=== PATIENT | female | born 1960 | race Hispanic/Latino ===

== ENCOUNTER 2022-06-10 10:54 | Emergency (ER) | payer BC ==
[2022-06-10 13:03] LABS: Basophils % (Auto) 0.8 % (0.0-1.8); Eosinophils # (Auto) 0.3 K/mm3 (0.0-0.4); Eosinophils % (Auto) 4.1 % (0.0-4.3); Hematocrit 37.9 % (30.3-42.9); Hemoglobin 12.6 gm/dl (10.1-14.3); Lymphocytes # (Auto) 2.6 K/mm3 (1.2-5.4); Lymphocytes % (Auto) 41.2 % (13.4-35.0); Mean Corpuscular HGB Conc 33 % (30-34); Mean Corpuscular Volume 87 fl (79-97); Monocytes # (Auto) 0.4 K/mm3 (0.0-0.8); Monocytes % (Auto) 6.2 % (0.0-7.3); Platelet Count 239 K/mm3 (140-440); Red Blood Count 4.33 M/mm3 (3.65-5.03); Red Cell Distribution Width 14.3 % (13.2-15.2)
[2022-06-10 13:21] LABS: Alanine Aminotransferase 53 units/L (7-56); Albumin 3.6 g/dL (3.9-5); Blood Urea Nitrogen 11 mg/dL (7-17); Hemolysis Index 2
[2022-06-10 13:31] LABS: BUN/Creatinine Ratio 18
[2022-06-10] MEDS ORDERED: oxyCODONE /ACETAMINOPHEN 5-325MG TAB PO ONE (15:59)
--- NOTE | 2022-06-10 16:04 | Emergency Department Report ---
ED General Adult HPI - General Chief complaint: Urogenital-Female Stated complaint: PAIN IN VAGINAL AREA AND KIDNEY PASSING BLOOD Time Seen by Provider: 06/10/22 15:47 Source: patient Mode of arrival: Ambulatory Limitations: No Limitations - History of Present Illness Initial comments: 61-year-old female with past medical history of hypertension diabetes reports to the ER with complaints of vaginal bleeding and vaginal cramping for 2 to 3 weeks. Patient describes the vaginal bleeding as spotting as if she is having a menstrual period. Patient reports it has been several years since her last menstrual period. Patient denies any nausea vomiting or diarrhea. Patient denies any weakness, dizziness, headaches, fatigue. No other acute signs or sy mptoms reported at this time Severity scale (0 -10): 9 - Related Data Previous Rx's Medication Instructions Recorded Last Taken Type Lisinopril/Hydrochlorothiazide 1 tab PO QDAY #90 tablet 07/24/13 10/31/13 Rx [Zestoretic 20-12.5 mg] Aspirin [Aspirin BABY CHEW TAB] 81 mg PO QDAY #30 tab.chew 11/02/13 Unknown Rx Butalb/Acetamin/Caff 50-325-40 1 each PO Q4H PRN #30 tablet 11/02/13 Unknown Rx [Fioricet] Ciprofloxacin HCl/Dexameth 4 drop OT QID #1 drops.susp 10/01/14 Unknown Rx [Ciprodex Otic Suspension 0.3/0.1%] predniSONE [Deltasone] 20 mg PO TID #15 tab 10/01/14 Unknown Rx Acetaminophen/Codeine [Tylenol 1 tab PO Q6H PRN 2 Days #8 tab 06/10/22 Unknown Rx /Codeine # 3 tab] Ciprofloxacin HCl 250 mg PO Q12H 3 Days #6 tab 06/10/22 Unknown Rx Lisinopril/Hydrochlorothiazide 1 each PO QDAY 30 Days #30 tab 06/10/22 Unknown Rx [Zestoretic 20-12.5 mg] Allergies Allergy/AdvReac Type Severity Reaction Status Date / Time No Known Allergies Allergy Unverified 07/24/13 13:59 ED Review of Systems ROS: Stated complaint: PAIN IN VAGINAL AREA AND KIDNEY PASSING BLOOD Other details as noted in HPI Comment: All other systems reviewed and negative Gastrointestinal: abdominal pain (Suprapubic area). denies: nausea, vomiting Genitourinary: abnormal menses ED Past Medical Hx - Past Medical History Previous Medical History?: Yes Hx Hypertension: Yes Hx Diabetes: Yes Hx Headaches / Migraines: Yes (brain tumor) Additional medical history: brain tumor - Surgical History Past Surgical History?: Yes Hx Cholecystectomy: Yes - Social History Smoking Status: Never Smoker Substance Use Type: None - Medications Home Medications: Home Medications Medication Instructions Recorded Confirmed Last Taken Type Lisinopril/Hydrochlorothiazide 1 tab PO QDAY #90 tablet 07/24/13 11/01/13 10/31/13 Rx [Zestoretic 20-12.5 mg] Aspirin [Aspirin BABY CHEW TAB] 81 mg PO QDAY #30 tab.chew 11/02/13 Unknown Rx Butalb/Acetamin/Caff 50-325-40 1 each PO Q4H PRN #30 tablet 11/02/13 Unknown Rx [Fioricet] Ciprofloxacin HCl/Dexameth 4 drop OT QID #1 drops.susp 10/01/14 Unknown Rx [Ciprodex Otic Suspension 0.3/0.1%] predniSONE [Deltasone] 20 mg PO TID #15 tab 10/01/14 Unknown Rx Acetaminophen/Codeine [Tylenol 1 tab PO Q6H PRN 2 Days #8 tab 06/10/22 Unknown Rx /Codeine # 3 tab] Ciprofloxacin HCl 250 mg PO Q12H 3 Days #6 tab 06/10/22 Unknown Rx Lisinopril/Hydrochlorothiazide 1 each PO QDAY 30 Days #30 tab 06/10/22 Unknown Rx [Zestoretic 20-12.5 mg] ED Physical Exam - General Limitations: No Limitations General appearance: alert, in no apparent distress - Head Head exam: Present: atraumatic, normocephalic - Eye Eye exam: Present: normal appearance - ENT ENT exam: Present: mucous membranes moist - Neck Neck exam: Present: normal inspection - Respiratory Respiratory exam: Present: normal lung sounds bilaterally. Absent: respiratory distress - Cardiovascular Cardiovascular Exam: Present: regular rate, normal rhythm. Absent: systolic murmur, diastolic murmur, rubs, gallop - GI/Abdominal GI/Abdominal exam: Present: soft, tenderness (Suprapubic area and lower abdominal region no acute abdominal signs noted on physical exam.), normal bowel sounds. Absent: distended, guarding, rebound, rigid - Extremities Exam Extremities exam: Present: normal inspection - Back Exam Back exam: Present: normal inspection - Neurological Exam Neurological exam: Present: alert, oriented X3 - Psychiatric Psychiatric exam: Present: normal affect, normal mood - Skin Skin exam: Present: warm, dry, intact, normal color. Absent: rash ED Course Vital Signs 06/10/22 06/10/22 06/10/22 11:24 19:34 20:28 Temperature 97.5 F L 98.2 F Pulse Rate 60 57 L 90 Respiratory 20 16 Rate Blood Pressure 187/72 Blood Pressure 197/103 173/62 [Right] O2 Sat by Pulse 98 98 Oximetry ED Medical Decision Making - Lab Data Result diagrams: 06/10/22 12:12 06/10/22 12:12 - Radiology Data [facility] [address] [place] [address] Ultrasound Report Signed Patient: SALVADOR MACHUCA MR#: [id number] : 1960 Acct:[id number] Age/Sex: 61 / F ADM Date: 06/10/22 Loc: ED Attending Dr: Ordering Physician: CARLY MEDRANO NP Date of Service: 06/10/22 Procedure(s): US pelvic complete Accession Number(s): [id number] cc: CARLY MEDRANO NP ULTRASOUND PELVIS INDICATION / CLINICAL INFORMATION: pelvic pain and vaginal bleeding. TECHNIQUE: Transabdominal and Transvaginal. Duplex Color Doppler used: Yes. COMPARISON: None available FINDINGS: UTERUS: - Appearance: No significant abnormality. - Size (cm): 7.1 x 3.9 x 5.1 - Endometrial Complex (if present): Thickened. Thickness in cm (if measured) = 2.4 - Mass or cyst: None. - Additional findings: None. RIGHT ADNEXA: No significant ovarian cyst or mass. Normal color Doppler blood flow. LEFT ADNEXA: No significant ovarian cyst or mass. Normal color Doppler blood flow. URINARY BLADDER: No significant abnormality. FREE FLUID: None. ADDITIONAL FINDINGS: None. IMPRESSION: 1. Thickened endometrium measuring 2.4 cm. Endometrial biopsy is recommended for further evaluation. Signer Name: Harpreet Reynolds DO Signed: 06/10/2022 5:15 PM Workstation Name: [id number] Transcribed By: KISHA Dictated By: HARPREET REYNOLDS DO Electronically Authenticated By: HARPREET REYNOLDS DO Signed Date/Time: 06/10/221714 DD/ 13 TD/TT - Medical Decision Making 61-year-old female with past medical history of hypertension diabetes reports to the ER with complaints of vaginal bleeding and vaginal cramping for 2 to 3 weeks. Patient describes the vaginal bleeding as spotting as if she is having a menstrual period. Patient reports it has been several years since her last menstrual period. Patient denies any nausea vomiting or diarrhea. Patient denies any weakness, dizziness, headaches, fatigue. No other acute signs or symptoms reported at this time. Physical exam patient does have lower subpubic pain with palpation. And lower abdominal pain with no acute abdominal signs for any acute red flags. No other acute symptoms noted on physical exam. Lab work with no acute labs with no acute process noted, UA with slight urinary tract infection noted. H&H is within normal limits Ultrasound shows a thickening of the endometrium and recommends a biopsy to be performed. Patient updated on her lab work and her ultrasound results. Patient informed that she will need to follow her primary care provider as well as her [employer] for recommendations of biopsy of the endometrium. Patient also informed that she needs to start taking her blood pressure medication as prescribed. Patient reports she has been out of her lisinopril 20 mg/hydrochlorothiazide 12.5 mg about a month now. Patient reports she has not been taking it due to increased workload and family stress. Patient informed of the importance of taking her high blood pressure medication to prevent any cardiac or neurological issues. Patient has been given a referral to the current on-call [employer] Dr. Lugo. Patient also been informed that she can find or reach out to her [employer] her local town or city. Patient given clonidine 0.1 mg as her blood pressure is 197/103. After receiving clonidine patient's blood pressure is 173/62. Patient sent home with a prescription of a 30 supply of her high blood pressure medication lisinopril 20 with hydrochlorothiazide 12.5 once daily. No acute concerns for kidney function. Patient agrees with plan of care and verbalized understanding. No further work-up is needed at this time. Vital Signs 06/10/22 06/10/22 06/10/22 11:24 19:34 20:28 Temperature 97.5 F L 98.2 F Pulse Rate 60 57 L 90 Respiratory 20 16 Rate Blood Pressure 187/72 Blood Pressure 197/103 173/62 [Right] O2 Sat by Pulse 98 98 Oximetry Lab Results 06/10/22 06/10/22 06/10/22 Range/Units 12:12 12:12 15:15 WBC 6.4 (4.5-11.0) K/mm3 RBC 4.33 (3.65-5.03) M/mm3 Hgb 12.6 (10.1-14.3) gm/dl Hct 37.9 (30.3-42.9) % MCV 87 (79-97) fl MCH 29 (28-32) pg MCHC 33 (30-34) % RDW 14.3 (13.2-15.2) % Plt Count 239 (140-440) K/mm3 Lymph % (Auto) 41.2 H (13.4-35.0) % [place] % (Auto) 6.2 (0.0-7.3) % Eos % (Auto) 4.1 (0.0-4.3) % Baso % (Auto) 0.8 (0.0-1.8) % Lymph # (Auto) 2.6 (1.2-5.4) K/mm3 [place] # (Auto) 0.4 (0.0-0.8) K/mm3 Eos # (Auto) 0.3 (0.0-0.4) K/mm3 Baso # (Auto) 0.0 (0.0-0.1) K/mm3 Seg Neutrophils % 47.7 (40.0-70.0) % Seg Neutrophils # 3.0 (1.8-7.7) K/mm3 Sodium 142 (137-145) mmol/L Potassium 3.9 (3.6-5.0) mmol/L Chloride 103.5 (98-107) mmol/L Carbon Dioxide 24 (22-30) mmol/L Anion Gap 18 mmol/L BUN 11 (7-17) mg/dL Creatinine 0.6 (0.6-1.2) mg/dL Estimated GFR > 60 ml/min BUN/Creatinine Ratio 18 % Glucose 110 H (65-100) mg/dL Calcium 9.0 (8.4-10.2) mg/dL Total Bilirubin 0.80 (0.1-1.2) mg/dL AST 51 H (5-40) units/L ALT 53 (7-56) units/L Alkaline Phosphatase 374 H (35-129) units/L Total Protein 7.9 (6.3-8.2) g/dL Albumin 3.6 L (3.9-5) g/dL Albumin/Globulin Ratio 0.8 % Lipase 42 (13-60) units/L Urine Color Straw (Yellow) Urine Turbidity Clear (Clear) Urine pH 6.5 (5.0-7.0) Ur Specific House 1.005 (1.003-1.030) Urine Protein <15 mg/dl (Negative) mg/dL Urine Glucose (UA) Negative (Negative) mg/dL Urine Ketones Negative (Negative) mg/dL Urine Blood 2+ (Negative) Urine Nitrite Negative (Negative) Ur Reducing Substances Not Reportable Urine Bilirubin Negative (Negative) Urine Ictotest Not Reportable Urine Urobilinogen 1.0 (<2.0) mg/dL Ur Leukocyte Esterase Moderate (Negative) Urine WBC (Auto) 8.0 H (0.0-6.0) /HPF Urine RBC (Auto) 6.0 (0.0-6.0) /HPF U Epithel Cells (Auto) 1.0 (0-13.0) /HPF Critical care attestation.: If time is entered above; I have spent that time in minutes in the direct care of this critically ill patient, excluding procedure time. ED Disposition Clinical Impression: Dysfunctional uterine bleeding, Endometrial thickening on ultrasound, Hypertension, uncontrolled Disposition: 01 HOME / SELF CARE / HOMELESS Is pt being admited?: No Condition: Stable Instructions: Abnormal Uterine Bleeding, Preventing Hypertension, Managing Your Hypertension, Hypertension, Adult, Hypertension (ED) Additional Instructions: Please call Dr. Lugo's office to set an appointment to go over the ultrasound results due to the endometrial thickening and recommendation for biopsy. If you have your own [employer] please call them to set up appointment as ultrasound recommends biopsy of the endometrium. Prescriptions: Ciprofloxacin HCl 250 mg PO Q12H 3 Days #6 tab Acetaminophen/Codeine [Tylenol /Codeine # 3 tab] 1 tab PO Q6H PRN 2 Days #8 tab PRN Reason: pain Lisinopril/Hydrochlorothiazide [Zestoretic 20-12.5 mg] 1 each PO QDAY 30 Days #30 tab Referrals: LEVI LUGO MD [Staff Physician] - 3-5 Days
[2022-06-10 16:05] LABS: Bilirubin,Urine Negative (Negative); Blood,Urine 2+ (Negative); Color,Urine Straw (Yellow); PH,Urine 6.5 (5.0-7.0)
[2022-06-10 16:06] LABS: Protein,Urine <15 mg/dL mg/dL (Negative)
--- NOTE | 2022-06-10 17:20 | Ultrasound Report ---
ULTRASOUND PELVIS INDICATION / CLINICAL INFORMATION: pelvic pain and vaginal bleeding. TECHNIQUE: Transabdominal and Transvaginal. Duplex Color Doppler used: Yes. COMPARISON: None available FINDINGS: UTERUS: - Appearance: No significant abnormality. - Size (cm): 7.1 x 3.9 x 5.1 - Endometrial Complex (if present): Thickened. Thickness in cm (if measured) = 2.4 - Mass or cyst: None. - Additional findings: None. RIGHT ADNEXA: No significant ovarian cyst or mass. Normal color Doppler blood flow. LEFT ADNEXA: No significant ovarian cyst or mass. Normal color Doppler blood flow. URINARY BLADDER: No significant abnormality. FREE FLUID: None. ADDITIONAL FINDINGS: None. IMPRESSION: 1. Thickened endometrium measuring 2.4 cm. Endometrial biopsy is recommended for further evaluation. Signer Name: Harpreet Adams DO Signed: 06/10/2022 5:15 PM Workstation Name: [id number]
[2022-06-10] MEDS ORDERED: cloNIDine 0.1 MG TAB PO ONE (19:23)
[2022-06-10 20:30] VITALS: BP 173/62
== END 2022-06-10 20:47 | disposition home or self-care (01) ==
LOC: ED 10:54
DX: N93.8 Other specified abnormal uterine and vaginal bleeding (principal); R93.89 Abnormal findings on diagnostic imaging of other specified body structures; I10 Essential (primary) hypertension; E11.9 Type 2 diabetes mellitus without complications; G43.909 Migraine, unspecified, not intractable, without status migrainosus; Z90.49 Acquired absence of other specified parts of digestive tract; Z79.899 Other long term (current) drug therapy
CPT/HCPCS: 36415; 76830; 76856; 80053; 81001; 83690; 85025; 99284